=== PATIENT | female | born 1960 | race Caucasian/White ===

== ENCOUNTER → 2017-09-04 16:51 | Outpatient (CLI) | payer OTHER, SELFPAY ==
--- NOTE | 2017-09-04 | MM_ITS ---
MM Dig screening mamm BI w/CAD CAD Screening COMPARISON: Digital mammograms 05/20/2013 and 06/12/2016 INDICATION: There is a history of breast cancer in patient's mother diagnosed after menopause. TECHNIQUE: Standard CC and MLO images were obtained. R2 CAD reviewed. FINDINGS: The breasts are composed primarily of fat with scattered fibroglandular densities in the central portions bilaterally. There is a possible asymmetric density central portion of the right breast which may have been present previously but only seen on the cc view and it now appears somewhat more prominent. Recommend the patient return for ultrasound evaluation the right breast. There are additional stable densities in each breast. There are no suspicious microcalcifications. IMPRESSION: Upper fatty parenchyma with possible new or change in asymmetric density right breast and recommend follow-up ultrasound BI-RADS Category: 0 Need Additional Imaging Evaluation RECOMMENDED FOLLOW-UP: IMM - IMMEDIATE FOLLOW-UP RECOMMENDED (A letter has been sent to the patient regarding results of the study.)
== END ==
PROVIDERS: Family Provider Nurse Practitioner Family; PCP Nurse Practitioner Family; Visit Provider Nurse Practitioner Family
DX: Z12.31 Encounter for screening mammogram for malignant neoplasm of breast (principal)
CPT/HCPCS: 77067

== ENCOUNTER → 2017-09-11 14:30 | Outpatient (CLI) | payer OTHER, SELFPAY ==
--- NOTE | 2017-09-11 14:33 | US_ITS ---
US breast LT complete COMPARISON: Digital mammograms 09/04/2017 HISTORY: Possible change in asymmetric density right breast TECHNIQUE: Targeted ultrasound right breast FINDINGS: There is an oval hypoechoic lesion just behind the nipple measuring 1.3 x 1.5 x 0.6 cm. This has well-defined borders showing minimal acoustic enhancement. There is a second hypoechoic lesion at the 11:00 position mid breast measuring 1.5 x 1.1 x 0.6 cm and this shows slight acoustic enhancement as well. This lesion appears to correspond in size and location to the density seen on recent mammogram. There is a normal-appearing node in the axilla. IMPRESSION: Benign-appearing hypoechoic and likely cystic lesions with the larger of the 2 corresponding in size and location to the density on recent mammogram. The other cystic lesion appears to be just deep to the nipple where there are fibroglandular densities seen on the mammogram. No additional evaluation is indicated at this time
== END ==
PROVIDERS: Family Provider Nurse Practitioner Family; PCP Nurse Practitioner Family; Visit Provider Nurse Practitioner Family
DX: R92.8 Other abnormal and inconclusive findings on diagnostic imaging of breast (principal)
CPT/HCPCS: 76641

== ENCOUNTER → 2018-09-06 08:59 | Outpatient (CLI) | payer BC, SELFPAY ==
--- NOTE | 2018-09-06 09:12 | MM_ITS ---
MM Dig screening mamm BI w/CAD CAD Screening COMPARISON: Digital mammograms with CAD 06/12/2016 and 09/04/2017 INDICATION: Is a history of breast cancer patient's mother diagnosed after menopause. TECHNIQUE: Standard CC and MLO images were obtained. R2 CAD reviewed. FINDINGS: Scattered fibroglandular densities are seen in both breasts. The asymmetric density seen just deep to the nipple right breast which was evaluated with ultrasound and showed benign features. However there is suggestion of slight increase in size of this lesion since the previous exam and again I would recommend ultrasound and spot compression views in MLO and CC projection. There are stable benign-appearing densities near the axillary tail which breast likely a low-lying nodes. There is a stable benign-appearing nodular density outer quadrant right breast. There are no suspicious microcalcifications. IMPRESSION: Probable fatty parenchyma with possible slight interval change in the dominant asymmetric density right breast and suggest additional evaluation BI-RADS Category: 0 Need Additional Imaging Evaluation RECOMMENDED FOLLOW-UP: IMM - IMMEDIATE FOLLOW-UP RECOMMENDED (A letter has been sent to the patient regarding results of the study.)
--- NOTE | 2018-09-06 09:13 | CT_ITS ---
CT lung screening EXAM: CT LUNG LOW DOSE WO CONTRAST HISTORY: 40 pack-year smoking history, asymptomatic for lung cancer ITS.REASON: H/O NICOTINE DEPENDENCE ORDERING PHYSICIAN: Chio Hirsch PATIENT AGE: 58 years COMPARISON: 09/05/2011 TECHNIQUE: The exam was performed on a GE Light Speed [address] scanner using 2.90 mGy CTDI. A low dose helical CT CHEST was performed on a multi-detector scanner. All CT scans at the facility use one or more dose reduction, viz: automated exposure control, ma/kV adjustment per patient size (including targeted exams where dose is matched to indication, i.e. head), or iterative reconstruction technique. The LDCT was performed in a facility that meets the criteria for the screening program. Data regarding this exam was submitted to ACR which is an approved registry. The order for this exam indicates that it came as a result of a lung cancer screening counseling shard decision-making visit that included all the elements required of such a visit including smoking cessation. The radiologist interpreting this exam meets the CMS criteria for the LDCT lung cancer screening program. The exam is reported using the Lung-RADS classification scale and reported to the ACR registry. NOTE: This study was performed for the specific purposes of lung cancer screening and is not an alternative to diagnostic chest CT. RADIATION DOSE: CTDI vol(CT dose Index-volume) = 2.90mG DLP (Dose Length Product) = 106.81 mGcm FINDINGS: There is mild hyperinflation with attenuation of the peripheral pulmonary vessels consistent with COPD. There is a stable 6 x 3 mm nodule in the right upper lobe anteriorly. A stable subpleural noncalcified nodule is present in the left lower lobe laterally at 12 mm. There is scattered groundglass opacification in the left upper lobe with a more focal area of consolidation in the left upper lobe medially at 3.7 x 2 cm. Patchy densities present in the left upper lobe laterally and anteriorly as well as the right upper lobe medially. Scattered areas of pneumonitis are considered. There are atelectatic or fibrotic changes in the lung bases. There is mild thickening of the pericardium. IMPRESSION: 1. Lung RADS Category: 3, probably benign with patchy areas of groundglass density which may represent bilateral areas of pneumonitis. Recommend [address] follow-up without and with contrast to confirm resolution 2. Other findings: COPD, mild pericardial thickening RECOMMENDATIONS: [address] chest without and with contrast
== END ==
PROVIDERS: PCP Nurse Practitioner Family; Visit Provider Nurse Practitioner Family
DX: Z12.31 Encounter for screening mammogram for malignant neoplasm of breast (principal); Z12.2 Encounter for screening for malignant neoplasm of respiratory organs; Z87.891 Personal history of nicotine dependence
CPT/HCPCS: 77067

== ENCOUNTER → 2018-09-23 13:10 | Outpatient (CLI) | payer BC, SELFPAY ==
--- NOTE | 2018-09-23 13:13 | US_ITS ---
MM Dig mamm DX unilat RT CAD, US breast RT complete INDICATION: Follow-up abnormal mammogram ORDERING PHYSICIAN: Chio Hirsch PATIENT AGE: 58 years COMPARISON: 09/06/2018, 09/04/2017, 06/12/2016 TECHNIQUE: Spot compression views are performed of the right breast along with right breast ultrasound. FINDINGS: There is a 18 x 17 mm Lobular nodular density in the central aspect of the right breast slightly superior. The margins are somewhat indistinct along the superior aspect. There is an additional 8 mm nodule just lateral to the larger nodule. Right breast ultrasound: There is a 15 mm cyst at 6:00 possibly corresponding to the nodule of interest. There is an additional 9 mm cyst at 9:00. Small amount of present in the axilla. IMPRESSION: There is a 15 mm cyst in the 6:00 region of the right breast. The mammographic abnormality is more toward the central aspect of the right breast. Suggest ultrasound guided cyst aspiration with mammogram to follow to see if these nodules are one and the same. BI-RADS Category: 4 Suspicious Abnormality-Biopsy Considered RECOMMENDED FOLLOW-UP: BIO - BIOPSY RECOMMENDED (A letter has been sent to the patient regarding results of the study.)
== END ==
PROVIDERS: PCP Nurse Practitioner Family; Visit Provider Nurse Practitioner Family
DX: D48.61 Neoplasm of uncertain behavior of right breast (principal)
CPT/HCPCS: 76641; 77065

== ENCOUNTER → 2018-10-01 12:19 | Outpatient (CLI) | payer BC, SELFPAY ==
--- NOTE | 2018-10-01 12:28 | US_ITS ---
US FNA Breast MM Dig mamm DX unilat RT CAD, Ordering Physician: Madelyn Carr Patient Age: 58 years Female COMPARISON: ] Right mammogram 09/23/2018; bilateral mammogramMarch 2018 09/06/2018; & May 2016 Right breast ultrasound 09/23/2018 INDICATION: Intermediate density upper-outer quadrant right breast reflecting debris-filled cyst cyst versus solid nodule ULTRASOUND RIGHT BREAST the cyst in this identified on september 23, 2018 ultrasound right breast retroareolar region. On that axilla appears slightly larger today measuring nearly 1.5 the mr maximally x 0.7 cm. These initial images performed by dr. lopez and technologist mw were initially performed to confirm the density persist and to best identify route for access and biopsy. ULTRASOUND-GUIDED CYST ASPIRATION &/FNA RIGHT BREAST following sterile preparation and local skin anesthesia; aspiration needle was directed to this area. Under ultrasound guidance the needle tip was directed to the the hypoechoic area. This turned out to be a cyst. Fairly easily Encountered and fairly easily drained in its entirety with no appreciable residual on ultrasound. Patient tolerated procedure well DIAGNOSTIC RIGHT MAMMOGRAM -POST ASPIRATION CC and MLO view right breast show show that the mass seen here previously has diminished compatible with drain cyst. Only scant minimal residual density in this area, along with some minor post FNA procedure changes. ......... IMPRESSION............ 1. Initial images reveal slightly larger 1.5 CM X 0.7 cm hypoechoic area left breast behind the nipple at central breast. 2. Thereafter Successful needle aspiration of this hypoechoic area performed-confirming cyst. It was fully drain with this ultrasound guided needle aspiration.. 3. Subsequent right mammogram shows that the previous mass is is basically gone. ... PATHOLOGY REPORT:...... Negative for malignancy cells....... Numerous apocrine cells with rare ductal groups. Findings are compatible with fibrocystic change BI-RADS Category: 2 Benign Finding(s) RECOMMENDED FOLLOW-UP: 1YR - 1 YEAR FOLLOW-UP
== END ==
PROVIDERS: PCP Nurse Practitioner Family; Visit Provider Nurse Practitioner Family
DX: D48.61 Neoplasm of uncertain behavior of right breast (principal)
CPT/HCPCS: 10005; 76642; 77065

== ENCOUNTER 2019-03-09 12:00 | Outpatient (RCR) | payer BC, SELFPAY | END 2019-03-14 09:53 | disposition home or self-care (01) | LOC: PT.CARL 12:00 | PROVIDERS: PCP Nurse Practitioner Family; Visit Provider Orthopaedic Surgery | DX: Z96.652 Presence of left artificial knee joint (principal) | CPT/HCPCS: 97010; 97014; 97110; 97116; 97140; 97163; G0283 ==

== ENCOUNTER → 2019-09-01 11:58 | Outpatient (CLI) | payer BC, MEDICAID, SELFPAY ==
--- NOTE | 2019-09-01 12:03 | XR_ITS ---
PROCEDURE: XR CHEST 2V CLINICAL HISTORY: PRECORDIAL PAIN Chest pain COMPARISON: CXR CHEST(2 VIEWS-NOT PORTABLE) from 03/29/2014 CXR CHEST(2 VIEWS-NOT PORTABLE) from 07/03/2014 CXR CHEST(2 VIEWS-NOT PORTABLE) from 03/14/2015 FINDINGS: The cardiomediastinal silhouette and pulmonary vascularity are within normal limits. Vague increased density is present in the left lower lobe and to lesser degree in the right lower lobe. Upper lobes are clear. Degenerative change thoracic spine IMPRESSION: Increased markings in both lower lobes suspicious for bibasilar infiltrates. Dictated by: Eder Bradley MD 09/01/2019 15:32 Electronically signed by Eder Bradley MD in [place] 09/01/2019 15:32
== END ==
PROVIDERS: PCP Nurse Practitioner Family; Visit Provider Nurse Practitioner Family
DX: R07.2 Precordial pain (principal)
CPT/HCPCS: 71046

== ENCOUNTER → 2019-10-31 08:51 | Outpatient (CLI) | payer BC, MEDICAID, SELFPAY ==
--- NOTE | 2019-10-31 | CT_ITS ---
PROCEDURE: CT CHEST WO CON CLINICAL INDICATION: The shortness of air, COPD, abnormal pulmonary function test, tobacco use, smoker COMPARISON: LUNGSCREEN CT lung screening from 09/06/2018 TECHNIQUE: Axial images obtained with sagittal and coronal reformats. All CT scans at the facility use one or more dose reduction, viz: automated exposure control, ma/kV adjustment per patient size (including targeted exams where dose is matched to indication, i.e. head), or iterative reconstruction technique. FINDINGS: HEART AND MEDIASTINAL STRUCTURES: Coronary artery calcifications are present. No mediastinal or hilar mass. LUNGS AND PLEURAL SPACES: Findings of COPD. There are some paraseptal emphysematous changes. There are some patchy areas of ground-glass opacity in the right upper lobe, right middle lobe, and left upper lobe. A some of these have a different location compared to the previous exam. There is a stable 6 x 3 mm nodule in the right upper lobe. There is a stable 12 mm nodule in the left lower lobe in the subpleural region. No new nodules are evident. No effusions. BONY STRUCTURES: Degenerative changes thoracic spine UPPER ABDOMEN: Prior cholecystectomy ADDITIONAL FINDINGS: Scattered small axillary lymph nodes are present IMPRESSION: COPD with paraseptal emphysema. There are patchy bilateral areas of ground-glass attenuation which have slightly changed compared to the previous study. Some of the previous areas of ground-glass attenuation have improved while there are new areas also noted. This is nonspecific and could be seen with viral pneumonia/ COVID 19, atypical pneumonia, or cryptogenic organizing pneumonia. Stable right upper and left lower lobe nodules Dictated by: Eder Bradley MD 11/02/2019 12:17 Electronically signed by Eder Bradley MD in [place] 11/02/2019 12:17
--- NOTE | 2019-10-31 | MM_ITS ---
PROCEDURE: MM DIG SCREENING MAMM BI W/CAD Digital Breast Tomosynthesis Included CLINICAL INDICATION: There is a history of breast cancer in the patient's mother diagnosed after menopause. COMPARISON: [facility] MM Dig screening mamm BI w/CAD from 09/06/2018 DXRT MM Dig mamm DX unilat RT CAD from 09/23/2018 DXRT MM Dig mamm DX unilat RT CAD from 10/01/2018 TECHNIQUE: Standard CC and MLO images and 3D Tomosynthesis was obtained. R2 CAD reviewed. FINDINGS: Scattered fibroglandular densities are seen throughout both breasts. There is a stable benign-appearing nodular density upper-outer quadrant right breast which appears typical of an intramammary node. There is a similar oval nodular density near the axillary tail which is stable likely a low-lying node. There is no suspicious lesion and no suspicious microcalcifications. IMPRESSION: Fibrofatty parenchyma with no suspicious lesions seen BI-RAD Category: 2 Benign Finding(s) FOLLOW-UP: 1YR 1 Year Follow-up (A letter has been sent to the patient regarding results of the study.) Dictated by: Dr. Torrey Jordan MD 11/01/2019 14:[address] Torrey Jordan MD in [place] 11/01/2019 14:40
== END ==
PROVIDERS: PCP Nurse Practitioner Family; Visit Provider Nurse Practitioner Family
DX: Z12.31 Encounter for screening mammogram for malignant neoplasm of breast (principal); R94.2 Abnormal results of pulmonary function studies
CPT/HCPCS: 71250; 77063; 77067

== ENCOUNTER 2020-08-21 11:19 | Emergency (ER) | payer BC, MEDICARE, MEDICAID, SELFPAY ==
--- NOTE | 2020-08-21 11:56 | XR_ITS ---
PROCEDURE: XR WRIST LT MIN 3V CLINICAL INDICATION: fall Pain COMPARISON: No exams were available for comparison FINDINGS: No fracture or dislocation. No lytic or blastic change. There is normal mineralization. The joint spaces are well-preserved. No significant degenerative/arthritic changes. No erosive changes evident. Other findings:None. IMPRESSION: No acute findings. Dictated by: Eder Bradley MD 08/21/2020 13:42 Eder Bradley MD in [place] 08/21/2020 13:42
--- NOTE | 2020-08-21 11:56 | XR_ITS ---
PROCEDURE: XR HAND LT MIN 3V CLINICAL INDICATION: fall Pain COMPARISON: No exams were available for comparison FINDINGS: No fracture or dislocation. No lytic or blastic change. There is normal mineralization. There are mild osteoarthritic changes at the DIP joints of the 2nd through 5th fingers and at the interphalangeal joint of the thumb Other findings:None. IMPRESSION: No acute findings. Dictated by: Eder Bradley MD 08/21/2020 13:43 Eder Bradley MD in [place] 08/21/2020 13:43
[2020-08-21 11:57] VITALS: BP 170/70; PULSE 114; RESP 16; TEMP 36.6; O2SAT 96; BMI 41.5
--- NOTE | 2020-08-21 12:10 | HMH.EDUTC ---
[facility] [place] [facility] [place] Clinical Impression: Hand contusion Qualifiers: Encounter type: initial encounter Laterality: left Qualified Code(s): S60.222A - Contusion of left hand, initial encounter Wrist sprain Qualifiers: Encounter type: initial encounter Laterality: left Qualified Code(s): S63.502A - Unspecified sprain of left wrist, initial encounter Disposition: Home, Self-Care Condition on Discharge: Good Instructions: How To Perform RICE (Rest, Ice, Compress, Elevate) Additional Instructions: *RICE, Rest the extremity, Ice 15-20 minutes 3-4 times daily, Compress- wear the tam wrap as discussed as much as possible to help reduce swelling and pain, Elevate the extremity when at rest *Tam wrap/velcro wrist splint is for support and help control swelling, use it except in the shower. Be sure that is not to tight but not to loose either *Elevate when resting *Ibuprofen 600-800mg every 6-8 hours as needed for pain an inflammation. If need something more can take Tylenol in between doses of Ibuprofen to help Immediately follow up with your family doctor for new or worsening of symptoms, or no noticeable improvement over the next 3-5 days You may call back to the [facility] tomorrow for the official Radiology reading of your xray and further instructions Follow up with Family Doctor if no improvement for referral to Orthopedics if needed Return if needed Referrals: Chio Hirsch [Primary Care Provider] - As needed Forms: Work/School Release Time of Disposition: 12:46 Medical Decision Making - Sukhdev Inquiry Pt receiving controlled substance: No Sukhdev was queried for this patient: No Vital Signs: 08/21/20 11:57 Temperature 97.8 F Temperature Source Tympanic Pulse Rate [Right] 114 H Respiratory Rate 16 Blood Pressure [Right Arm] 170/70 H Blood Pressure Mean [Right Arm] 103 Blood Pressure Source [Right Arm] Automatic Cuff Blood Pressure Position [Right Arm] Sitting 02 Sat by Pulse Oximetry 96 Oxygen Delivery Method Room Air Orders (Tests/Meds): ORDERS Category Date Time Status XR hand LT min 3V Stat Exams 08/21/20 11:56 Taken XR wrist LT min 3V Stat Exams 08/21/20 11:56 Taken - Radiology Data #1 Image(s): Hand Image Reviewed: Yes I reviewed the patient's radiology image Preliminary Findings: No Fracture Seen #2 Image(s): Wrist Image Reviewed: Yes I reviewed the patient's radiology image Preliminary Findings: No Fracture Seen [facility] [place] [facility] [place] HPI - General Stated complaint: [id number] left hand injury, home fall Time Seen by Provider: 08/21/20 12:10 Mode of Arrival: Ambulatory Source of Information: Patient Limitations: No Limitations Description of Symptoms (Recalled from Triage Doc. by RN): pt fell thursday and is having L hand and wrist pain. HEENT Symptoms (Recalled from RN notes): No Resp Symptoms (Recalled from RN notes): No Skin Symptoms (Recalled from RN notes): No MS Symptoms (Recalled from RN notes): Yes (L HAND & WRIST PAIN) Functional Status (Recalled from RN notes): na - History of Present Illness Provider Complaint: Patient states that she slipped on Thursday and fell and hurt her left hand and wrist State that ever since she has been having pain in her left knuckle area that shoots pain down to her wrist at times when she moves it Denies any other injuries - Related Data Home Medications Medication Instructions Recorded Confirmed Atorvastatin Calcium [Lipitor 40mg 40 mg PO DAILY 03/21/18 03/21/18 Tab] Fluoxetine HCl 40 mg PO DAILY 03/21/18 03/21/18 Levothyroxine Sodium 175 mcg PO DAILY 03/21/18 03/21/18 [Levothyroxine 175mcg (0.175mg) Tab] lisinopriL [Lisinopril 40mg Tablet] 40 mg PO DAILY 03/21/18 03/21/18 Allergies Allergy/AdvReac Type Severity Reaction Status Date / Time Sulfa (Sulfonamide Allergy Severe HIVES/AIRWA Verified 08/21/20 12:01 Antibiotics) Y - Worker's Comp Is this a Worker's Comp case?: No [facility] History - Hepatitis A Screen Drug use
[2020-08-21 12:47] VITALS: BP 169/72; PULSE 112; RESP 16; TEMP 36.6
== END 2020-08-21 12:52 | disposition home or self-care (01) ==
PROVIDERS: Emergency Provider Nurse Practitioner; PCP Nurse Practitioner Family
DX: S60.222A Contusion of left hand, initial encounter (principal); S63.502A Unspecified sprain of left wrist, initial encounter; W01.0XXA Fall on same level from slipping, tripping and stumbling without subsequent striking against object, initial encounter; Y92.019 Unspecified place in single-family (private) house as the place of occurrence of the external cause; F17.210 Nicotine dependence, cigarettes, uncomplicated; Z88.2 Allergy status to sulfonamides
CPT/HCPCS: 29125; 73110; 73130; 99202; G0463

== ENCOUNTER 2020-10-05 12:40 | Outpatient (CLI) | payer MEDICARE, BC, SELFPAY ==
[2020-10-05] VITALS (10 sets, daily range): BP systolic 120–156; BP diastolic 56–78; PULSE 88–97; RESP 18; TEMP 36.4–36.9; O2SAT 92–93; BMI 40.9
[2020-10-05 13:19] LABS: Basophils # 0.1 K/mm3 (0-0.2); Basophils % 0.7 % (0.1-2.0); Eosinophils % 0.4 % (0.1-12.0); Hematocrit 39.5 % (37.0-47.0); Hemoglobin 12.3 g/dL (12.2-16.2); Lymphocytes # 1.4 K/mm3 (0.7-4.5); Lymphocytes % 17.9 % (10-50); Mean Corpuscular HGB Conc 31.2 g/dL (31.8-35.4); Mean Corpuscular Hemoglobin 27.4 pg (27.0-31.2); Mean Corpuscular Volume 87.7 fl (81-99); Mean Platelet Volume 7.7 fl (7.4-10.4); Monocytes # 0.6 K/mm3 (0.1-1.0); Monocytes % 8.3 % (1.7-9.3); Neutrophils # 5.5 K/mm3 (1.8-7.8); Neutrophils % 72.7 % (37.0-80.0); Platelet Count 234 K/mm3 (142-424); Red Blood Count 4.51 M/mm3 (4.20-5.40); White Blood Count 7.6 K/mm3 (4.8-10.8)
[2020-10-05 13:23] LABS: Chloride 99 mmol/L (98-107); Potassium 3.6 mmoL/L (3.5-5.1); Sodium 133 mmol/L (136-145)
[2020-10-05 13:25] LABS: Blood Urea Nitrogen 11 mg/dl (7-17); Creatinine Clearance Estimated 103 mL/min (50-200); Estimated Glomerular Filt Rate 56 ml/min (>60); GFR (African American) 68 ML/MIN (>60)
[2020-10-05 13:26] LABS: Alanine Aminotransferase 16 U/L (12-78); Albumin/Globulin Ratio 1.1 (1.1-1.8); Alkaline Phosphatase 84 U/L (38-126); Anion Gap 11.6 mEq/L (5-15); Aspartate Amino Transferase 27 U/L (14-36); Bilirubin,Total 0.5 mg/dl (0.2-1.3); Calcium 8.5 mg/dl (8.4-10.2); Carbon Dioxide 26 mmol/L (22.0-30.0); Globulin 3.8 g/dL (1.3-3.2); Glucose 111 mg/dl (74-100); Total Protein,Serum 7.8 g/dl (6.3-8.2)
--- NOTE | 2020-10-05 14:00 | PC.NURSE ---
1399-september, cashier parking lot spoke with [facility] about scheduling pt for bam infusion; wants to give pt bam infusion today; pt will receive bam infusion while getting her fluids. september here to explain the process of giving the drug.
--- NOTE | 2020-10-05 14:15 | PC.NURSE ---
1415-spoke with yadira from [facility] that [facility] wants to d/c mick ma.
--- NOTE | 2020-10-05 15:55 | XR_ITS ---
PROCEDURE: XR CHEST PORTABLE CLINICAL HISTORY: covid positive COMPARISON: CR CXR CHEST(2 VIEWS-NOT PORTABLE) from 07/03/2014 CR CXR CHEST(2 VIEWS-NOT PORTABLE) from 03/14/2015 CR XR CHEST 2V from 09/01/[address] CHEST WO CON from 10/31/2019 FINDINGS: The cardiomediastinal silhouette and pulmonary vascularity are within normal limits. Patchy infiltrate is present in the right midlung and right lower lung zone. The left lung is clear. No acute bony abnormalities. IMPRESSION: Pneumonia in the right mid and lower lung zone Dictated by: Eder Bradley MD 10/05/2020 17:38 Eder Bradley MD in [place] 10/05/2020 17:38
--- NOTE | 2020-10-05 15:55 | PC.NURSE ---
1558-spoke with yadira at [facility] about changing xray order to chest 2 view portable; per [facility] ok to proceed
== END 2020-10-05 16:10 | disposition home or self-care (01) ==
LOC: INF 12:43
PROVIDERS: PCP Nurse Practitioner Family; Visit Provider Nurse Practitioner Family
DX: U07.1 COVID-19 (principal); K52.9 Noninfective gastroenteritis and colitis, unspecified; E86.0 Dehydration; J45.901 Unspecified asthma with (acute) exacerbation
CPT/HCPCS: 71045; 80053; 85025; 96360; 96361; 96367; 96375; J2405

== ENCOUNTER → 2020-11-06 10:51 | Outpatient (CLI) | payer BC, MEDICARE, SELFPAY ==
--- NOTE | 2020-11-06 10:57 | MM_ITS ---
PROCEDURE: MM DIG SCREENING MAMM BI W/CAD Digital Breast Tomosynthesis Included CLINICAL INDICATION: SCREENING COMPARISON: MG MM DIG SCREENING MAMM BI W/CAD from 10/31/2019 TECHNIQUE: Standard CC and MLO images and 3D Tomosynthesis was obtained. R2 CAD reviewed. FINDINGS: The breasts are composed of scattered fibroglandular tissue.. No dominant mass lesions, suspicious calcifications or architectural distortion. Multiple bilateral nodules are again noted, demonstrate no significant interval change compared to prior study. Some of these nodules demonstrate central lucency, suggestive of intramammary lymph nodes. IMPRESSION: No suspicious findings. BI-RAD Category: 2 Benign Finding(s) FOLLOW-UP: 1YR 1 Year Follow-up (A letter has been sent to the patient regarding results of the study.) Dictated by: Lovely Zaragoza 11/07/2020 09:30 Lovely Zaragoza in [place] 11/07/2020 09:30
== END ==
PROVIDERS: PCP Nurse Practitioner Family; Visit Provider Nurse Practitioner Family
DX: Z12.31 Encounter for screening mammogram for malignant neoplasm of breast (principal)
CPT/HCPCS: 77063; 77067

== ENCOUNTER 2020-12-24 08:51 | Day surgery (SDC) | payer MEDICARE, OTHER, SELFPAY ==
[2020-12-19 10:56] VITALS: BMI 40.4
[2020-12-24 09:17] VITALS: BP 119/66; PULSE 104; RESP 18; TEMP 36.3; O2SAT 94
[2020-12-24 09:24] LABS: POC Glucose,Bedside 111 (70-110)
[2020-12-24 09:52] VITALS: O2SAT 95
--- NOTE | 2020-12-24 10:24 | HMH.PROC ---
[facility] Procedure Note Procedure Note:: Colonoscopy Procedure Report: Colonoscopy with cold snare polypectomy Endoscopist: Avel Villa II, MD Referring physician: LAURYN Reich Date of Procedure: December 24, 2020 Equipment: Olympus 190 variable stiffness pediatric colonoscope Sedation: MAC sedation Indication: Mrs. Workman is a 60-year-old female who is here for diagnostic colonoscopy secondary to a positive Cologuard test. She did have a colonoscopy 10 years ago that was reportedly normal. She reports no abdominal pain, weight loss, change in her bowel habits or rectal bleeding. She reports no family history of colon cancer. Procedure: Prior to the procedure, a history and physical exam was performed, and patient's medications and allergies were reviewed. The risks, benefits and alternatives of the sedation and procedure were discussed with the patient. All questions were answered and informed consent was obtained. The patient was brought to the procedure room. Patient identification and proposed procedure were verified by the physician and the nurse. The patient was placed in a left lateral decubitus position and the scope was passed under direct vision. Throughout the procedure, the patient's blood pressure, pulse, and oxygen saturations were monitored continuously. The colonoscopy was accomplished without difficulty. The patient tolerated the procedure well. Findings: On digital rectal examination there was normal rectal tone. There were no external hemorrhoids. The colonoscope was introduced through the anal canal to the rectum and advanced to the cecum. The ileocecal valve and appendiceal orifice were identified. The scope was advanced a short distance into the ileum which appeared grossly normal. The scope was then withdrawn into the colon. There were 6 colon polyps (ascending x2 (5 and 8 mm), descending x1 (7 mm) and sigmoid/rectum x3 (4, 4 and 6 mm)) which were all removed via cold snare polypectomy. There were scattered diverticuli throughout the descending and sigmoid colon (LEFT colon). The rectum itself was normal. Upon retroflexion within the rectum there were grade 1-2 internal hemorrhoids. The preparation was excellent throughout with [place] Preparation Score of 9. The cecal time was 12 minutes. Impression: 1. Colonic polyps x6 2. Left-sided diverticulosis 3. Grade 1-2 internal hemorrhoids Plan: I will follow up the polyp pathology and recommend repeat colonoscopy again in 3 years based upon the polyp histology. I would encourage bulking fiber supplementation on a long-term daily maintenance basis.
[2020-12-24 10:25] VITALS: BP 116/93; PULSE 98; RESP 20; TEMP 36.3; O2SAT 87
[2020-12-24 10:35] VITALS: BP 108/61; PULSE 93; RESP 20; O2SAT 95
[2020-12-24 10:45] VITALS: BP 101/58; PULSE 84; RESP 20; O2SAT 99
[2020-12-24 11:00] VITALS: BP 133/62; PULSE 89; RESP 20; O2SAT 95
--- NOTE | 2020-12-24 11:12 | HMH.ANESCL ---
[facility] Anesthesia Checklist - Structural Data Admitted From: Home Planned Operative Procedure/s: colonoscopy Consent for Planned Operative Procedure(s) Verified: Yes - Airway Assessment C-Spine Mobility Assessed: Yes TMJ Mobility Assessed: Yes Dentition: Good Dentition - Neurological Assessment Level of Consciousness: Awake, Alert, Appropriate - Anesthesia Plan Anesthesia Risk discussed: Yes Anesthesia Plan: Verified ASA Class: III Anesthesia Type: MAC [facility] History I have reviewed the patient's past medical history: Yes Medical History: Reports:: Diabetes Mellitus Type 2, Heart Murmur, Hyperlipidemia, Hypertension Denies:: Cancer, Diabetes Mellitus Type 1, Internal Pacemaker, MRSA, Seizures *Have you ever received a pneumonia vaccine?: Yes *Have you received a flu vaccine this season?: Yes Other Medical History: Reports: Arthritis, Hypothyroidism, Thyroid Disease Anesthesia experience/problems:: none Laterality Cases: Bilateral: Carpal Tunnel Release Other Surgeries: Yes: Cholecystectomy, Tubal Ligation. No: Pacemaker Amputation: No Fractures: No - *Social History Last grade of school completed: High school graduate Smoking Status: Current every day smoker Tobacco Type: cigarettes # Packs/Day (cigarettes): 1 Alcohol Intake: never Substance Use Type: denies use *Occupational Status:: retired Housing: house Household Members: spouse *Travel in the last 8 weeks: None Family Hx:: Cancer, Thyroid Disorder
== END 2020-12-24 11:00 | disposition home or self-care (01) ==
LOC: OUTP 08:59
PROVIDERS: PCP Nurse Practitioner Family; Visit Provider Internal Medicine Gastroenterology
PROC: 0DJD8ZZ Inspection of Lower Intestinal Tract, Via Natural or Artificial Opening Endoscopic (ICD-10-PCS; CPT 45378; principal; 2020-12-24 10:00)
DX: K63.5 Polyp of colon (principal); K57.30 Diverticulosis of large intestine without perforation or abscess without bleeding; K64.0 First degree hemorrhoids; E11.9 Type 2 diabetes mellitus without complications; E78.5 Hyperlipidemia, unspecified; I10 Essential (primary) hypertension; R01.1 Cardiac murmur, unspecified; Z72.0 Tobacco use; Z80.9 Family history of malignant neoplasm, unspecified; Z83.49 Family history of other endocrine, nutritional and metabolic diseases
CPT/HCPCS: 45385; 82962; 88305

== ENCOUNTER → 2021-05-14 14:34 | Outpatient (CLI) | payer MEDICARE, MEDICAID, SELFPAY ==
--- NOTE | 2021-05-14 14:39 | CT_ITS ---
PROCEDURE: CT LUNG SCREENING CLINICAL INDICATION: H/O NICOTINE DEPENDENCE COMPARISON: CT CT CHEST WO CON from 10/31/2019 TECHNIQUE: The exam was performed on a GE Light Speed [address] scanner using 2.90 mGy CTDI. A low dose helical CT CHEST was performed on a multi-detector scanner. All CT scans at the facility use one or more dose reduction, viz: automated exposure control, ma/kV adjustment per patient size (including targeted exams where dose is matched to indication, i.e. head), or iterative reconstruction technique. The LDCT was performed in a facility that meets the criteria for the screening program. Data regarding this exam was submitted to ACR which is an approved registry. The order for this exam indicates that it came as a result of a lung cancer screening counseling shard decision-making visit that included all the elements required of such a visit including smoking cessation. The radiologist interpreting this exam meets the [facility] criteria for the LDCT lung cancer screening program. The exam is reported using the Lung-RADS classification scale and reported to the ACR registry. NOTE: This study was performed for the specific purposes of lung cancer screening and is not an alternative to diagnostic chest CT. RADIATION DOSE: CTDI vol(CT dose Index-volume) = 2.90mG DLP (Dose Length Product) = 101.34 mGcm FINDINGS: COPD changes with scattered areas of scarring. Stable 7 mm nodule right. Old granulomatous disease. Stable 10 mm subpleural nodule left lower lobe laterally. No new suspicious nodules evident. OTHER FINDINGS: Minor coronary artery calcifications IMPRESSION: Lung-RADS Category 2 Benign Appearance or Behavior Follow-up: Continue annual screening with LDCT in 12 months Dictated by: Eder Bradley MD 05/18/2021 09:27 Eder Bradley MD in [place] 05/18/2021 09:27
== END ==
PROVIDERS: PCP Nurse Practitioner Family; Visit Provider Nurse Practitioner Family
DX: Z87.891 Personal history of nicotine dependence (principal); Z12.2 Encounter for screening for malignant neoplasm of respiratory organs
CPT/HCPCS: 71271

== ENCOUNTER 2021-10-03 21:41 | Observation (INO) | payer MEDICARE, MEDICAID, SELFPAY ==
[2021-10-03] VITALS (7 sets, daily range): BP systolic 119–193; BP diastolic 63–78; PULSE 112–125; RESP 19–26; TEMP 36.9; O2SAT 92–99; BMI 41.8
--- NOTE | 2021-10-03 21:46 | ECG_ITS ---
APPROVED REPORT Exam: Resting ECG HR:121 bpm ECG Measurements Heart Rate 121 AXES WV 132 P 77 QRSd 86 QRS 56 QT 422 T 78 QTc 494 Conclusion SINUS TACHYCARDIA LOW QRS VOLTAGE IN PRECORDIAL LEADS [QRS DEFLECTION < 1.0 mV IN CHEST LEADS] NONSPECIFIC T-WAVE ABNORMALITY ABNORMAL RHYTHM ECG UNCONFIRMED REPORT Electronically signed by : Santosh Silva MD 10/04/2021 14:51:04
--- NOTE | 2021-10-03 21:48 | PC.NURSE ---
Notified respiratory of need for a VBG and Duoneb breathing treatment
--- NOTE | 2021-10-03 21:49 | XR_ITS ---
PROCEDURE INFORMATION: Exam: XR Chest Exam date and time: 10/03/2021 9:53 PM Age: 61 years old Clinical indication: Shortness of breath; Additional info: SOA TECHNIQUE: Imaging protocol: XR of the chest. Views: 1 view. Total images: 1 COMPARISON: CR XR CHEST PORTABLE 10/05/2020 4:06 PM FINDINGS: Lungs: Pulmonary vasculature grossly normal. Mild bilateral perihilar and basilar interstitial and alveolar opacities suggesting pulmonary edema or pneumonia. Pleural spaces: No pleural effusion. No pneumothorax. Heart/Mediastinum: Heart size normal. No tracheal/mediastinal shift. Bones/joints: No acute osseous abnormalities are identified. IMPRESSION: Mild bilateral perihilar and basilar interstitial and alveolar opacities suggesting pulmonary edema or pneumonia.
--- NOTE | 2021-10-03 21:54 | HMH.EDGENADL ---
ED Disposition Clinical Impression: Acute exacerbation of chronic obstructive airways disease Community acquired pneumonia Qualifiers: Laterality: unspecified laterality Qualified Code(s): J18.9 - Pneumonia, unspecified organism Disposition: Admitted As Inpatient Condition on Discharge: Good - Critical Care Critical Care Time: No Attestation: On 10/03/21, the high probability of a clinically significant, sudden or life threatening deterioration of the following system(s) required my full and direct attention, intervention and personal management. The time I documented below is in addition to time spent performing reported procedures but includes the following listed in this critical care notation. Medical Decision Making - Medical Records Medical records reviewed: Yes: I reviewed the patient's medical records. - Sukhdev Inquiry Pt receiving controlled substance: No Vital Signs: 10/03/21 21:33 10/03/21 21:55 10/03/21 22:25 Temperature 98.4 F Temperature Source Oral Pulse Rate 119 H 119 H Pulse Rate [Left] 125 H Respiratory Rate 19 Blood Pressure [Right Arm] 193/78 H Blood Pressure Mean [Right Arm] 116 02 Sat by Pulse Oximetry 95 96 95 Oxygen Delivery Method Room Air Room Air Room Air - Lab Data Lab Results 10/03/21 21:49: VBG pH 7.34, VBG pCO2 40.5, VBG pO2 71.6 H, VBG HCO3 21.5 L, VBG Total CO2 22.8 L, VBG O2 Saturation 94.2 H, VBG Base Excess -4.2 L 10/03/21 21:52: WBC 12.3 H, RBC 4.22, Hgb 12.7, Hct 40.0, MCV 94.7, MCH 30.2, MCHC 31.9, RDW 14.3, Plt Count 410, MPV 7.8, Neut % (Auto) 87.6 H, Lymph % (Auto) 6.4 L, [place] % (Auto) 4.5, Eos % (Auto) 0.8, Baso % (Auto) 0.8, Neut # (Auto) 10.7 H, Lymph # (Auto) 0.8, [place] # (Auto) 0.6, Eos # (Auto) 0.1, Baso # (Auto) 0.1, Total Counted 100, Neutrophils % (Manual) 79 H, Band Neutrophils % 1.0, Lymphocytes % (Manual) 10, Monocytes % (Manual) 10 H, Platelet Estimate Normal 04/07/22 21:52: Sodium 132 L, Potassium 4.3, Chloride 99, Carbon Dioxide 24, Anion Gap 13.3, BUN 19 H, Creatinine 1.20 H, Estimated Creat Clear 43, Estimated GFR 45 L, Est GFR ( Amer) 55 L, Glucose 297 H, Calcium 8.4, Troponin I < 0.01, NT-Pro-B Natriuret Pep 128 H 10/04/21 00:02: SARS-CoV-2 (PCR) Not detected, Influenza A Untype (PCR) Not detected, Influenza Type B (PCR) Not detected Result diagrams: 10/03/21 21:52 10/03/21 21:52 Orders (Tests/Meds): ED MEDICATIONS Generic Name Dose Route Start Last Admin Trade Name Freq PRN Reason Stop Dose Admin Albuterol/Ipratropium 6 ml 10/04/21 00:15 Ipratropium/Albuterol 3 Ml Neb IH 11/03/21 00:14 Q6H KENDAL Atorvastatin Calcium 40 mg 10/04/21 09:00 Atorvastatin 40mg Tablet PO 11/03/21 08:59 DAILY KENDAL Doxycycline Hyclate 100 mg 10/04/21 00:00 10/04/21 00:26 Doxycycline Hycl 100 Mg Tablet PO 10/18/21 00:00 100 mg Q12H KENDAL Administration Ceftriaxone Sodium 2 gm/ 50 mls @ 100 mls/hr 10/03/21 23:45 10/04/21 00:23 Sodium Chloride IV 10/17/21 23:44 100 mls/hr Q24H KENDAL Administration Levothyroxine Sodium 175 mcg 10/04/21 09:00 Levothyroxine 175mcg (0.175mg) Tab PO 11/03/21 08:59 DAILY KENDAL Metformin HCl 500 mg 10/04/21 09:00 Metformin 500mg Tablet PO 11/03/21 08:59 DAILY KENDAL Non-Formulary Medication 40 mg 10/04/21 09:00 Lisinopril [Lisinopril 40mg Tablet] PO 11/03/21 08:59 DAILY KENDAL Non-Formulary Medication 10 mg 10/04/21 09:00 Loratadine [Claritin] PO 11/03/21 08:59 DAILY KENDAL Non-Formulary Medication 30 mg 10/04/21 09:00 Ubidecarenone [Coq-10] PO 11/03/21 08:59 DAILY KENDAL Fluticasone/Salmeterol puffs 10/04/21 09:00 Fluticasone/Salmeterol 250/50mcg Diskus IH 11/03/21 08:59 BID KENDAL Tiotropium Shellman cap 10/04/21 09:00 Tiotropium 18mcg/Puff Inhaler IH 11/03/21 08:59 DAILY KENDAL Discontinued Medications Generic Name Dose Route Start Last Admin Trade Name Freq PRN Reason Stop Dose Admin Albuterol Sul
[2021-10-03 22:00] LABS: Basophils # 0.1 K/mm3 (0-0.2); Basophils % 0.8 % (0.1-2.0); Eosinophils # 0.1 K/mm3 (0.0-0.4); Eosinophils % 0.8 % (0.1-12.0); Hemoglobin 12.7 g/dL (12.2-16.2); Lymphocytes # 0.8 K/mm3 (0.7-4.5); Lymphocytes % 6.4 % (10-50); Mean Corpuscular HGB Conc 31.9 g/dL (31.8-35.4); Mean Corpuscular Hemoglobin 30.2 pg (27.0-31.2); Mean Corpuscular Volume 94.7 fl (81-99); Mean Platelet Volume 7.8 fl (7.4-10.4); Monocytes # 0.6 K/mm3 (0.1-1.0); Monocytes % 4.5 % (1.7-9.3); Neutrophils # 10.7 K/mm3 (1.8-7.8); Neutrophils % 87.6 % (37.0-80.0); Platelet Count 410 K/mm3 (142-424); Red Blood Count 4.22 M/mm3 (4.20-5.40); Red Cell Distribution Width 14.3 % (11.5-17.5); White Blood Count 12.3 K/mm3 (4.8-10.8)
[2021-10-03 22:01] LABS: VBG Base Excess -4.2 mmol/L (-2.4-2.3); VBG HCO3 21.5 mmol/L (23-30); VBG Oxygen Saturation 94.2 % (50-70); VBG PCO2 40.5 mmol/L (35-51); VBG PH 7.34 mmol/L (7.31-7.41); VBG PO2 71.6 mmol/L (28-40); VBG Total CO2 22.8 mmol/L (23-27)
[2021-10-03 22:05] LABS: MANUAL DIFFERENTIAL MANUAL DIFFERENTIAL (MANUAL DIFF)
[2021-10-03 22:07] LABS: Chloride 99 mmol/L (98-107); Sodium 132 mmol/L (136-145)
[2021-10-03 22:08] LABS: Potassium 4.3 mmoL/L (3.5-5.1)
[2021-10-03 22:10] LABS: Blood Urea Nitrogen 19 mg/dl (7-17); Creatinine Clearance Estimated 43 mL/min (50-200); Estimated Glomerular Filt Rate 45 ml/min (>60); GFR (African American) 55 ML/MIN (>60)
[2021-10-03 22:11] LABS: Anion Gap 13.3 mEq/L (5-15); Calcium 8.4 mg/dl (8.4-10.2); Carbon Dioxide 24 mmol/L (22.0-30.0); Glucose 297 mg/dl (74-100)
[2021-10-03 22:21] LABS: NT Pro Brain Natriuretic Pep. 128 pg/mL (0-125)
[2021-10-03 22:29] LABS: Troponin I < 0.01 ng/ml (0.00-0.034)
[2021-10-03 23:03] LABS: Lymphocytes % 10 % (10-50); Monocytes % 10 % (2-9); Neutrophils % 79 % (42-76); Platelet Estimate Normal; Total Cells Counted 100
[2021-10-04] VITALS (11 sets, daily range): BP systolic 118–175; BP diastolic 59–99; PULSE 80–112; RESP 18–20; TEMP 36.1–36.8; O2SAT 89–96; BMI 41.8
--- NOTE | 2021-10-04 00:03 | PC.NURSE ---
SHAYY SMITH speaking to Dr. Jose
--- NOTE | 2021-10-04 00:10 | PC.NURSE ---
Notified cook house supervisor of pt admission and need for bed assignment
[2021-10-04 00:19] LABS: Coronavirus 19, PCR Not Detected (NotDetected); Influenza A, PCR Not Detected (NotDetected); Influenza B, PCR Not Detected (NotDetected)
--- NOTE | 2021-10-04 01:55 | PC.NURSE ---
patient up to floor via wheelchair @ 01:24.
--- NOTE | 2021-10-04 07:18 | P.CONPHA_ITS ---
[facility] Pharmacy VTE Monitoring - Patient Demographics Admission date: 10/03/21 Report Date: 10/04/21 Time: 07:18 Allergies/Adverse Reactions: Patient Allergies Sulfa (Sulfonamide Antibiotics) Allergy (Severe, Verified 08/21/20 12:01) HIVES/AIRWAY Height: 1.65 m Weight: 114.022 kg Patient Problems: Current Active Problems Community acquired pneumonia (Acute) Acute exacerbation of chronic obstructive airways disease (Acute) - VTE Risk Labs: VTE Related Lab Results Hgb 12.7 g/dL (12.2-16.2) 10/03/21 21:52 Hct 40.0 % (37.0-47.0) 10/03/21 21:52 Plt Count 410 K/mm3 (142-424) 10/03/21 21:52 BUN 19 mg/dl (7-17) H 10/03/21 21:52 Creatinine 1.20 mg/dl (0.52-1.04) H 10/03/21 21:52 Estimated Creat Clear 43 mL/min (50-200) 10/03/21 21:52 VTE Score: 6 VTE Risk Level: Moderate Risk - Prophylaxis VTE Prophylaxis Ordered?: Yes Types of VTE Prophylaxis: TEDS Knee High Location of Applied Device: Bilateral Lower Extremeties
[2021-10-04 07:22] LABS: Basophils # 0.1 K/mm3 (0-0.2); Basophils % 0.5 % (0.1-2.0); Chloride 102 mmol/L (98-107); Eosinophils % 0.3 % (0.1-12.0); Hematocrit 40.4 % (37.0-47.0); Hemoglobin 12.7 g/dL (12.2-16.2); Lymphocytes # 0.4 K/mm3 (0.7-4.5); Lymphocytes % 3.5 % (10-50); Mean Corpuscular HGB Conc 31.5 g/dL (31.8-35.4); Mean Corpuscular Hemoglobin 29.6 pg (27.0-31.2); Mean Corpuscular Volume 94.1 fl (81-99); Mean Platelet Volume 7.6 fl (7.4-10.4); Monocytes # 0.2 K/mm3 (0.1-1.0); Monocytes % 1.6 % (1.7-9.3); Neutrophils # 11.6 K/mm3 (1.8-7.8); Neutrophils % 94.1 % (37.0-80.0); Platelet Count 409 K/mm3 (142-424); Red Blood Count 4.29 M/mm3 (4.20-5.40); Red Cell Distribution Width 14.2 % (11.5-17.5); Sodium 135 mmol/L (136-145); White Blood Count 12.3 K/mm3 (4.8-10.8)
[2021-10-04 07:23] LABS: Potassium 4.7 mmoL/L (3.5-5.1)
[2021-10-04 07:26] LABS: Anion Gap 13.7 mEq/L (5-15); Blood Urea Nitrogen 20 mg/dl (7-17); Calcium 8.6 mg/dl (8.4-10.2); Carbon Dioxide 24 mmol/L (22.0-30.0); Creatinine Clearance Estimated 47 mL/min (50-200); Estimated Glomerular Filt Rate 50 ml/min (>60); GFR (African American) 61 ML/MIN (>60); Glucose 204 mg/dl (74-100); MANUAL DIFFERENTIAL MANUAL DIFFERENTIAL (MANUAL DIFF)
--- NOTE | 2021-10-04 07:33 | HMH.PHAINT ---
MEDICATION RECONCILIATION COMPLETED ON PATIENT USING EXTERNAL FILL HISTORY FROM PHARMACY. -FRANNIE VIVEROS, HAND
[2021-10-04 07:51] LABS: Lymphocytes % 9 % (10-50); Monocytes % 3 % (2-9); Neutrophils % 88 % (42-76); Platelet Estimate Normal; RBC Morphology Normal; Total Cells Counted 100
--- NOTE | 2021-10-04 08:38 | CA_ITS ---
APPROVED REPORT EXAM: Comprehensive 2D, Doppler, and color-flow Echocardiogram [employer] Agent: Mitra Valentine RT(R) Ht: 5 ft 5 in Wt: 251lbs BSA: 2.18 BP: 193/78 mmHg Indications: SOB, COPD, Murmur, smoker, HTN, DM, VERA, obesity, hyperlipidemia, CAD, pneumonia. 2D Dimensions LVEF (Kirkland's) 64.30 % F: 54 - 74 LV Volume 101.50 mL F: 46 - 106 LV Volume Index 46.55 mL/m2 F: 29 - 61 LA Volume 46.90 mL LA Volume Index 21.51 mL/m2 (M/F) 16-34 M-Mode Dimensions RVDd 3.05 cm (0.9-2.6) LA Diam 5.23 cm (1.9-4.0) LVDd 5.51 cm (3.5-5.7) Ao Diam 3.01 cm (2.0-3.7) LVDs 4.57 cm (3.5-5.7) IVSd 0.98 cm (0.6-1.1) PWd 0.98 cm (0.6-1.1) EF (Teich) 35.20% FS 17.10% EDV (Teich) 148.00 mL TAPSE 2.14 (<1.7) ESV (Teich) 95.90 mL LV Diastology E Decel Time 183.00 (160-240 msec) E/A Ratio 0.7 MED E' 7.60 (< 7 cm/sec) E'/MED E' Ratio 13.91 (>14) LAT E' 6.40 (<10 cm/sec) E/LAT E' Ratio 16.52 (>14) Aortic Valve AI PHT 578.00 ms Mitral Valve MV E Max Henry. 106.00 (40-130 cm/s) MV A Velocity 149.00 (40-130 cm/s) E/A Ratio 0.71 MV Decel. Time 183.00 (160-240 ms) MV PHT 54.00 ms Tricuspid Valve TR P. Velocity 351.00 cm/s RAP Estimate 10.00 mmHg RVSP 59.20 mmHg Left Ventricle Left atrium is moderately enlarged, left ventricle is normal size, mild concentric left ventricular hypertrophy, estimated ejection fraction 55% with no regional wall motion abnormality, grade 1 diastolic dysfunction seen without tissue Doppler evidence of raise left atrial pressure. Right Ventricle Right atrium right ventricle mildly enlarged with normal contractility. Aortic Valve Aortic valve is minimally thickened and fibrosed, there is no aortic stenosis or aortic insufficiency. Mitral Valve Mitral valve grossly normal, there is mild mitral regurgitation. Tricuspid Valve Tricuspid grossly normal, there is mild tricuspid regurgitation, calculated right ventricular systolic pressure is 59 mmHg. Pulmonic Valve Pulmonic valve is poorly visualized. Great Vessels Aortic root is normal size. Inferior vena cava is normal size with normal inspiratory collapse. Pericardium No significant pericardial effusion noted. Conclusion 1. Moderately enlarged left atrium, normal left ventricular size, mild concentric left ventricular hypertrophy, estimated ejection fraction 55% with no regional wall motion abnormality, grade 1 diastolic dysfunction seen with tissue Doppler evidence of raise left atrial pressure. 2. Mildly enlarged right ventricle with normal contractility. 3. Mild mitral and tricuspid regurgitation, calculated right ventricular systolic pressure is 59 mmHg. 4. No significant pericardial effusion noted. 5. Inferior vena cava normal size with normal inspiratory collapse. Electronically signed by : Abhilash Choi MD 10/04/2021 17:04:29
--- NOTE | 2021-10-04 13:17 | HMH.HPDC ---
<Julia Rosario - Last Filed: 10/04/21 13:17> General - General Admission date:: 10/04/21 Discharge date: 10/04/21 *Admission Date: 10/03/21 *Chief complaint: shortness of breath *History of present illness: 61-year-old female with past medical history of hypertension, COPD, diabetes, CAD who is presenting to the ED with shortness of breath. Patient states that 2 days ago she had a sore throat with congestion. She was seen by her PCP earlier this morning, was Covid and influenza negative. She states that she had worsening shortness of breath over the afternoon which brought her to call EMS. She has not had any chest pain today or earlier this week. She has not had any recent fevers or chills, notes a mild worsening cough. No history of DVT or PE, no leg swelling. She admits to weight gain. No history of congestive heart failure, she is not taking Lasix. She denies any abdominal pain, chest pain. Patient does not wear oxygen at home. Differential diagnoses include COPD exacerbation, respiratory failure, pneumonia, asthma exacerbation, ACS, PE, pleural effusion. Given this work-up will include CBC, BNP, BMP, troponins, chest x-ray, EKG. Patient is mildly hypertensive, oxygen saturation 95% on room air. Physical exam with extensive wheezing, will give DuoNeb breathing treatment x2, albuterol x1 hour, 125 Solu-Medrol. Chest x-ray concerning for bibasilar pneumonia, pulmonary edema. Pneumonia severity score 113. BNP slightly elevated, initial troponin less than 0.01. EKG without evidence of ischemia. Patient remains mildly tachypneic, oxygen saturation 90 to 92% on room air. This was after patient received continuous albuterol breathing treatment x1 hour, DuoNeb's x2. Given this I would like to admit patient for pneumonia treatment with IV antibiotics and observation as I feel that she is high risk for bounce back or poor outcome going home. She is agreeable to this. I consulted the hospitalist team who admitted the patient. Placed order for a.m. labs, 2 g IV Rocephin, 100 mg oral doxycycline, regular diet. (above as per ER physician) [facility] History I have reviewed the patient's past medical history: Yes Medical History: Reports:: Asthma, Chronic Obstructive Pulmonary Disease (COPD), Diabetes Mellitus Type 2, Heart Murmur, Hyperlipidemia, Hypertension Denies:: Cancer, Diabetes Mellitus Type 1, Internal Pacemaker, MRSA, Seizures *Have you ever received a pneumonia vaccine?: Yes *Have you received a flu vaccine this season?: Yes Other Medical History: Reports: Arthritis, Hypothyroidism, Thyroid Disease Laterality Cases: Left: Total Knee Replacement, Bilateral: Carpal Tunnel Release Other Surgeries: Yes: Cholecystectomy, Tubal Ligation. No: Pacemaker Amputation: No Fractures: No - *Social History Last grade of school completed: 11th or 12th Smoking Status: Current every day smoker Tobacco Type: cigarettes # Packs/Day (cigarettes): 1 Alcohol Intake: never Substance Use Type: denies use *Occupational Status:: retired Housing: house Household Members: significant other *Travel in the last 8 weeks: None Family Hx:: Cancer, Diabetes, Hypertension, Thyroid Disorder Review of Systems - Constitutional Denies chills, Denies fever(s) - Eyes Denies blurry vision, Denies double vision - ENT Reports nasal congestion, Reports sore throat - *Cardiovascular Reports shortness of breath, Denies chest pain - *Respiratory Reports cough, Reports shortness of breath, Reports wheezing - *Gastrointestinal Denies abdominal pain, Denies loose stools, Denies nausea, Denies vomiting - *Genitourinary Denies difficulty urinating, Denies painful urination - *Musculoskeletal Denies joint pain - *Neurologic Reports weakness, Denies headache(s), Denies dizziness Exam Vital signs and Labs for Last 24 Hours: Temp Pulse Resp BP Pulse Ox 98.1 F 86 18 147/99 H 91 L 10/04/21 10:41 10/04/21 11:26 10/04/21 10:41 10/04/21 10:41
--- NOTE | 2021-10-04 14:13 | HMH.PHAINT ---
DISCHARGE MEDICATION COUNSELING PROVIDED, DISCUSSED HOW TO TAKE THE MEDROL DOSE PACK (WITH FOOD, CAN TAKE ALL TABS FOR THE DAY AT ONCE, TAKE EARLIER IN THE DAY IF YOU CAN). PATIENT ENDORSED NO QUESTIONS AT THIS TIME.
--- NOTE | 2021-10-07 15:07 | CARE MANAGER ---
Attempted to contact patient and left VM option. SAADIA Coyne
--- NOTE | 2021-10-07 16:56 | CARE MANAGER ---
Spoke with patient regarding discharge from the hospital, patient states that she is doing well, has her meds and a follow-up appointment. No further needs at this time.
--- NOTE | 2021-10-08 16:18 | CARE MANAGER ---
Unable to reach patient via phone to discuss post discharge status.
== END 2021-10-04 14:10 | disposition home or self-care (01) ==
LOC: ER 22:53 → 2ND 10-04 01:21
PROVIDERS: Admitting Provider Family Medicine; Emergency Provider Emergency Medicine; PCP Nurse Practitioner Family; Visit Provider Family Medicine
DX: J18.9 Pneumonia, unspecified organism (principal); J44.1 Chronic obstructive pulmonary disease with (acute) exacerbation; E11.9 Type 2 diabetes mellitus without complications; I25.10 Atherosclerotic heart disease of native coronary artery without angina pectoris; Z20.822 Contact with and (suspected) exposure to COVID-19; E03.9 Hypothyroidism, unspecified; Z79.84 Long term (current) use of oral hypoglycemic drugs; R06.02 Shortness of breath
CPT/HCPCS: G0378; 71045; 80048; 82803; 83880; 84484; 85007; 85025; 93005; 93306; 94640; 96365; 96375; 99285; C9803; J0696; U0003; U0005

== ENCOUNTER → 2021-10-14 14:14 | Outpatient (CLI) | payer MEDICARE, SELFPAY ==
--- NOTE | 2021-10-14 14:19 | XR_ITS ---
FINAL REPORT CLINICAL HISTORY: BRONCHOPNEUMONIA COMPARISON: October 03, 2021 FINDINGS: Two views of the chest were obtained. The heart size and pulmonary vascularity are within normal limits. The mediastinum is normal. There is mild bronchial wall thickening that may represent bronchitis. There is improved aeration of the lung bases. There is no pneumothorax. There is moderate degenerative change of the thoracic spine. IMPRESSION: Mild bronchial wall thickening may represent bronchitis. Reviewed, Interpreted and Dictated by Fredrick Fontenot III, MD Transcribed by Juan Jose Phillips Authenticated by Fredrick Fontenot III, MD on 10/14/2021 04:24:03 PM [facility]
== END ==
PROVIDERS: PCP Nurse Practitioner Family; Visit Provider Nurse Practitioner Family
DX: J18.0 Bronchopneumonia, unspecified organism (principal)
CPT/HCPCS: 71046

== ENCOUNTER → 2022-01-01 13:07 | Outpatient (CLI) | payer MEDICARE, MEDICAID, SELFPAY ==
--- NOTE | 2022-01-01 13:12 | MM_ITS ---
PROCEDURE INFORMATION: Exam: MG Bilateral Screening 3D Mammography Exam date and time: 01/01/2022 1:10 PM Age: 61 years old Clinical indication: Screening examination TECHNIQUE: Imaging protocol: Bilateral Screening tomosynthesis and 2D mammography including computer-aided detection (CAD) when performed. COMPARISON: 1. MG MM DIG SCREENING MAMM BI W/CAD 11/06/2020 10:56 AM 2. MG MM DIG SCREENING MAMM BI W/CAD 10/31/2019 9:01 AM 3. MG DXRT MM Dig mamm DX unilat RT CAD 10/01/2018 2:11 PM 4. MG DXRT MM Dig mamm DX unilat RT CAD 09/23/2018 1:21 PM FINDINGS: MAMMOGRAPHY: Breast composition: There are scattered areas of fibroglandular density. Mass: Stable benign-appearing subcentimeter nodules are present in the bilateral breasts. No new or morphologically suspicious nodule has developed to suggest malignancy. Architectural distortion: No new or suspicious architectural distortion. Calcifications: No new or suspicious calcifications are present Asymmetric density: No new or suspicious asymmetric density is present Skin thickening: None. Axillary adenopathy: None. IMPRESSION: No mammographic evidence of malignancy. Recommend annual screening mammography unless otherwise clinically indicated. ASSESSMENT: BI-RADS category 2: Benign
== END ==
PROVIDERS: PCP Nurse Practitioner Family; Visit Provider Nurse Practitioner Family
DX: Z12.31 Encounter for screening mammogram for malignant neoplasm of breast (principal)
CPT/HCPCS: 77063; 77067

== ENCOUNTER 2023-03-22 15:31 | Emergency (ER) | payer MEDICARE, MEDICAID, SELFPAY ==
[2023-03-22 15:45] VITALS: BP 134/64; PULSE 98; RESP 18; TEMP 36.9; O2SAT 97; BMI 39.9
--- NOTE | 2023-03-22 16:29 | EXP.UTC ---
Discharge Plan Disposition Patient Disposition: Home, Self-Care Condition: Good Prescriptions Prescriptions: No Action metformin 500 MG tablet 500 mg PO DAILY atorvastatin 40 MG tablet 40 mg PO HS levothyroxine 175 MCG tablet 175 mcg PO DAILY coenzyme Q10 30 MG capsule 30 mg PO DAILY loratadine 10 MG capsule 10 mg PO DAILY fluoxetine 40 MG capsule 40 mg PO DAILY lisinopril 40 MG tablet 40 mg PO DAILY [id number] 1 EACH blister with device 1 puff IH DAILY Patient Comments: INHALE 1 DOSE 1 TIME EACH DAY, AT THE SAME TIME EACH DAY. montelukast 10 mg tablet 10 mg PO DAILY Patient Comments: TAKE 1 TABLET 1 TIME EACH DAY IN THE EVENING FOR ALLERGIES albuterol sulfate 90 mcg/actuation HFA aerosol inhaler 1 puff INHALATION NEEDED PRN (Reason: wheezing ) Patient Comments: INHALE 1 OR 2 PUFFS EVERY 4 HOURS NEEDED Referrals Follow up/Referrals: Chio Hirsch [Primary Care Provider] - See instructions Activity Restrictions/Add. Instructions Additional Instructions/Restrictions: Follow up with PCP next week. Clinical Impressions Clinical Impression: Tricompartment osteoarthritis of right knee Instructions Patient Instructions: DI for Osteoarthritis, Certain Exercises May Help People with Knee Osteoarthritis, How To Perform RICE (Rest, Ice, Compress, Elevate) Discharge ED Provider: Noemi Shah [facility] General Stated complaint: AO 03/21@2000 injured R Knee Mode of Arrival: Ambulatory Source of Information: Patient Limitations: No Limitations Time Seen by Provider: 03/22/23 16:28 Description of Symptoms (Recalled from Triage Doc. by RN): Twisted right knee while sitting down. She leaned over while sitting down and he knee when the opposite way. Pain is from right hip down leg. HEENT Symptoms (Recalled from RN notes): No Resp Symptoms (Recalled from RN notes): No Skin Symptoms (Recalled from RN notes): No MS Symptoms (Recalled from RN notes): Yes Functional Status (Recalled from RN notes): n/a History of Present Illness Provider Complaint: Pt states that she twisted and started turn to the side and felt a pop in her knee. She relates that she has pain in her buttock that runs down her leg. She reports that she is unable to bend the knee and has a hard time standing. Related Data Home Medications Medication Instructions Recorded Confirmed atorvastatin 40 mg tablet 40 mg PO HS Cholesterol 03/21/18 03/22/23 levothyroxine 175 mcg tablet 175 mcg PO DAILY thyroid 03/21/18 03/22/23 metformin 500 mg tablet 500 mg PO DAILY Diabetes 10/05/20 03/22/23 coenzyme Q10 30 mg capsule 30 mg PO DAILY heart health 12/19/20 10/03/21 loratadine 10 mg capsule 10 mg PO DAILY Allergy symptoms 12/19/20 03/22/23 fluoxetine 40 mg capsule 40 mg PO DAILY MOOD 10/04/21 03/22/23 fluticasone fur. 100 mcg-umeclid 1 puff IH DAILY COPD 10/04/21 03/22/23 62.5 mcg-vilant 25 mcg inhalat.powder lisinopril 40 mg tablet 40 mg PO DAILY Hypertension 10/04/21 03/22/23 albuterol sulfate 90 mcg/actuation 1 puff inhalation NEEDED PRN 03/22/23 03/22/23 aerosol inhaler wheezing montelukast 10 mg tablet 10 mg PO DAILY allergies 03/22/23 03/22/23 Allergies Allergy/AdvReac Type Severity Reaction Status Date / Time Sulfa (Sulfonamide Allergy Severe HIVES/AIRWA Verified 03/22/23 16:11 Antibiotics) Y Worker's Comp Is this a Worker's Comp case?: No [facility] Disclaimer: The information contained in this section may have been updated after the patient was seen, as this information can be updated by other users. Social History Smoking Status: Current every day smoker tobacco type: cigarettes packs per day: 1 second hand exposure: No alcohol intake: never substance use type: denies use current occupational status: retired Travel in the last 8 weeks: None household members
--- NOTE | 2023-03-22 16:46 | XR_ITS ---
PROCEDURE INFORMATION: Exam: XR Right Knee Exam date and time: 03/22/2023 4:43 PM Age: 63 years old Clinical indication: Pain; Knee; Right; Additional info: Knee pain TECHNIQUE: Imaging protocol: Radiologic exam of the right knee. Views: 3 views. COMPARISON: CR FTR3 FOOT-RT-3 VIEWS 11/22/2016 7:36 PM FINDINGS: Bones/joints: Advanced degenerative changes medial knee compartment with diffuse joint space narrowing, subchondral sclerosis and mild marginal spurring. Mild marginal spurring along the lateral knee compartment and patellofemoral joint. No fracture, dislocation or gross malalignment. Moderate-sized joint effusion. Soft tissues: Unremarkable. IMPRESSION: Tricompartmental osteoarthritis most pronounced within the medial knee compartment with moderate size joint effusion.
[2023-03-22 18:02] VITALS: BP 134/64; PULSE 98; RESP 18; TEMP 36.9; O2SAT 97
== END 2023-03-22 18:02 | disposition home or self-care (01) ==
PROVIDERS: Emergency Provider Nurse Practitioner Family; PCP Nurse Practitioner Family
DX: M17.11 Unilateral primary osteoarthritis, right knee (principal); F17.210 Nicotine dependence, cigarettes, uncomplicated; X50.1XXA Overexertion from prolonged static or awkward postures, initial encounter
CPT/HCPCS: 73562; 99212; 99213; G0463

== ENCOUNTER 2023-07-08 14:59 | Outpatient (CLI) | payer MEDICARE, SELFPAY ==
--- NOTE | 2023-07-08 15:04 | CT_ITS ---
FINAL REPORT TECHNIQUE: Axial CT images of the chest were obtained without contrast. Low-dose protocol was utilized. This study was performed with techniques to keep radiation doses as low as reasonably achievable (ALARA). Individualized dose reduction techniques using automated exposure control or adjustment of mA and/or kV according to the patient's size were employed. CLINICAL HISTORY: H/O TOBACCO USE former smoker, quit 1 year ago. smoked 1ppd x 40 years COMPARISON: 05/14/2021 FINDINGS: CT CHEST WITHOUT, LOW DOSE SCREENING CT Di Vol: 2.90 mGy DLP: 98.99 mGy*cm There is no axillary, mediastinal, or hilar adenopathy. The heart size is normal. There are mild coronary artery calcifications. There is no pleural or pericardial effusion. There is mild emphysema and mild scarring. The lung windows show a stable 7 mm nodule in the right upper lobe on image 146 and a stable 10 mm pleural-based nodule in the left lower lobe seen on image 235. There are several calcified granulomas. Limited images of the upper abdomen demonstrate no acute findings. Postcholecystectomy. IMPRESSION: Stable nodules. LR Category 1: 12 month follow-up low-dose chest CT is recommended. Reviewed, Interpreted and Dictated by Fredrick Fontenot III, MD Transcribed by Marie Briceno Authenticated and . [facility]
--- NOTE | 2023-07-08 15:04 | MM_ITS ---
PROCEDURE INFORMATION: Exam: MG Bilateral Screening 3D Mammography Exam date and time: 07/08/2023 3:02 PM Age: 63 years old Clinical indication: Screening examination. Her mother had breast cancer. TECHNIQUE: Imaging protocol: Bilateral Screening tomosynthesis and 2D mammography including computer-aided detection (CAD) when performed. COMPARISON: 1. MG MM DIG SCREENING MAMM BI W/CAD 01/01/2022 1:10 PM 2. MG MM DIG SCREENING MAMM BI W/CAD 11/06/2020 10:56 AM 3. MG MM DIG SCREENING MAMM BI W/CAD 10/31/2019 9:01 AM 4. MG DXRT MM Dig mamm DX unilat RT CAD 10/01/2018 2:11 PM FINDINGS: MAMMOGRAPHY: Breast composition: There are scattered areas of fibroglandular density. Mass: No suspicious mass. Architectural distortion: None. Calcifications: No suspicious calcifications. Asymmetric density: None. Skin thickening: None. Axillary adenopathy: None. IMPRESSION: No mammographic evidence of malignancy. Annual screening is recommended unless otherwise clinically indicated. ASSESSMENT: BI-RADS Category 1: Negative
== END 2023-07-08 23:59 ==
LOC: RAD 15:00
PROVIDERS: PCP Nurse Practitioner Family; Visit Provider Nurse Practitioner Family
DX: Z12.31 Encounter for screening mammogram for malignant neoplasm of breast; Z87.891 Personal history of nicotine dependence; Z12.2 Encounter for screening for malignant neoplasm of respiratory organs
CPT/HCPCS: 71271; 77063; 77067

== ENCOUNTER 2025-05-04 09:27 | Outpatient (CLI) | payer MEDICARE, SELFPAY ==
--- NOTE | 2025-05-04 09:32 | MM_ITS ---
PROCEDURE INFORMATION: Exam: MG Bilateral Screening 3D Mammography Exam date and time: 05/04/2025 9:53 AM Age: 65 years old Clinical indication: Screening examination TECHNIQUE: Imaging protocol: Bilateral Screening tomosynthesis and 2D mammography including computer-aided detection (CAD) when performed. COMPARISON: 1. MG MM DIG SCREENING MAMM BI W/CAD 07/08/2023 3:02 PM 2. MG MM DIG SCREENING MAMM BI W/CAD 01/01/2022 1:10 PM FINDINGS: MAMMOGRAPHY: Breast composition: There are scattered areas of fibroglandular density. Mass: No suspicious masses. Architectural distortion: None. Calcifications: No suspicious calcifications. Asymmetric density: None. Skin thickening: None. Axillary adenopathy: None. IMPRESSION: No mammographic evidence of malignancy. Annual screening is recommended unless otherwise clinically indicated. ASSESSMENT: BI-RADS Category 1: Negative.
--- NOTE | 2025-05-04 09:32 | XR_ITS ---
FINAL REPORT TECHNIQUE: Bone densitometry calculations of the lumbar spine and left hip were obtained. CLINICAL HISTORY: SCREENING COMPARISON: None FINDINGS: Using L1-4, the bone mineral density of the spine is 1.135 g/cm2, corresponding to T-score of 0.8 and a Z score of 2.7. This is within the range of normal. Using the left hip, the bone mineral density of the femoral neck is 0.777 g/cm2, corresponding to a T-score of -0.6 and a Z-score of 1.0. This is within the range of normal. Using the right hip, the bone mineral density of the femoral neck is 0.706 g/cm?, corresponding to a T-score of -1.3 and a Z-score of 0.3. This is within the range of osteopenia. NOTE: T-score: Standard deviation compared with peak bone mass of young adult mean. *Following the recommendations of the International Society of Bone densitometry, classification of hip BMD is based on the lower of two T-scores; total hip or femoral neck. IMPRESSION: 1. Bone mineral density of the lumbar spine and left femoral neck within the range of normal. 2. Bone mineral density of the right femoral neck within the range of osteopenia. Reviewed, Interpreted and Dictated by Eve Sage MD Transcribed by Shikha Capps Authenticated and [facility]
--- NOTE | 2025-05-04 09:32 | CT_ITS ---
FINAL REPORT TECHNIQUE: Thin section axial images were obtained through the lungs using a low-dose technique per lung cancer screening protocol. Reconstruction images were obtained using the axial data. Exam was performed using dose reduction technique. CLINICAL HISTORY: SCREENING. FORMER SMOKER QUIT 4 YEARS AGO. SMOKED 1PPD FOR 30 YEARS. COPD. FATHER AND SISTER HX LUNG CANCER. COMPARISON: 07/08/2023 FINDINGS: CTDLvol: 2.90 DLP: 109.94 Former smoker 30 pack year history Lungs: There is a new nodular opacity in the subpleural left upper lobe measuring 25 mm on series 4, image 30 and 21 mm in craniocaudal dimension. There is a stable pleural-based left lower lobe nodule measuring 10 mm on series 4, image 60. A right upper lobe nodule measuring 6 mm on series 4, image 41 is also stable. Filling defects in the left mainstem bronchus are linear and likely secretions. Lymph nodes: No axillary lymphadenopathy. A new 23 mm left suprahilar lymph node is noted. No right hilar lymphadenopathy. Mediastinum: Heart size is normal. Pleura/pericardium: No pleural or pericardial effusion. Other: No acute abnormality in the upper abdomen. IMPRESSION: New 29 mm pleural-based left upper lobe nodular opacity with new left suprahilar lymphadenopathy. Lung RADS: 4X Recommendation: PET-CT Reviewed, Interpreted and Dictated by Eve Sage MD Transcribed by Marie Briceno Authenticated and . [facility]
--- OUTSIDE RECORDS SUMMARY | 2025-05-04 09:37 | XMS_ITS | Clinical Summary ---
Author Organization [facility] Address [address] [place] [address] Care Team Providers Care Estate Planning Paralegal Name Role Phone Chio Hirsch APRN Primary Care Provider [phone] Allergies Active Allergy Reactions Criticality Noted Date Comments Sulfa Antibiotics Anaphylaxis High 11/25/2017 Medications atorvastatin (LIPITOR) 40 MG tablet Take 40 mg by mouth Every Night. 8 Active FLUoxetine (PROzac) 40 MG capsule Take 40 mg by mouth Every Night. 8 Active lisinopril (PRINIVIL,ZESTR IL) 40 MG tablet Take 40 mg by mouth Every Night. 8 Active BREO ELLIPTA 100-25 MCG/INH aerosol powder Inhale 1 puff Daily. 8 Active levothyroxine (SYNTHROID, LEVOTHROID) 175 MCG tablet Take 175 mcg by mouth Daily. 2 8 Active metFORMIN ER (GLUCOPHAGE-XR) 500 MG 24 hr tablet Take 500 mg by mouth Every Night. 2 8 Active INCRUSE ELLIPTA 62.5 MCG/INH aerosol powder INHALE 1 DOSE ONCE A DAY 0 8 Active albuterol (PROVENTIL) (2.5 MG/3ML) 0.083% nebulizer solution Take 2.5 mg by nebulization Every 4 (Four) Hours As Needed for Wheezing. Active Coenzyme Q10 (CO Q-10) 200 MG capsule Take 1 capsule by mouth Every Night. Active aspirin 81 MG EC tablet Take 1 tablet by mouth Daily. Resume in 1 month 9 Active aspirin EC 325 MG EC tablet Take 1 tablet by mouth Daily. 30 tablet 9 Active Active Problems Problem Noted Date Diagnosed Date Leukocytosis, likely reactive 01/19/2019 Acute blood loss anemia, mild, asymptomatic 12/28 Acute postoperative pain 01/19/2019 Hyponatremia, mild 01/19/2019 Renal insufficiency, mild 01/19/2019 Status post total left knee replacement 01/19/20 19 HLD (hyperlipidemia) 01/18/2019 DM (diabetes mellitus) 01/18/2019 PHAN on CPAP 01/18/2019 Hypothyroid 01/18/2019 Tobacco use 01/18/2019 Primary osteoarthritis of left knee 11/12/2018 Family History Medical History Relation Name Comments Cancer Father Cancer Mother Hypertension Mother Relation Name Status Comments Father Mother Alive Social History Tobacco Use Types Packs/Day Years Used Date Smoking Tobacco: Every Day Cigarettes 0.5 36 Smokeless Tobacco: Never Comments:will quit for surge ry Alcohol Use Standard Drinks/Week Comments No 0 (1 standard drink = 0.6 oz pur e alcohol) Abuse Screen Answer Date Recorded Unsafe at Home or Work/School Not on file Feels Threatened by Someone? Not on file 05/2023 Does Anyone Keep You from Co ntacting Others or Doint Things Outside the Home? Not on file 04/09/2023 Physical Sign of Abuse Present Not on file 1 Housing Stability Answer Date Recorded Current Living Arrangements Not on file 03/29 Potentially Unsafe Housing Conditions Not on ricardo e 04/09/2023 Family and Community Support Answer Renato e Recorded Help with Day-to-Day Activities Not on file 04/09/2023 Lonely or Isolated Not on file 04/09/2023 Employment Answer Date Recorded Do you want help finding or keeping work or a matt b? Not on file 04/09/2023 Disabilities Answer Date Recorded Concentrating, Remembering, or Making Decisions Difficulty Not on file 04/09/2023 Doing Errands Independently Difficulty Not on fi le 04/09/2023 Education Answer Date Recorded Help with school or training? Not on file Preferred Language Not on file 04/09/2023 Comments No Sex and Gender Information Value Date Recorded Sex Assigned at Not on file Legal Sex Female 8:13 AM EDT Gender Identity Not on file Sexual Orientation Not on file Last Filed Vital Signs Vital Sign Reading Time Taken Comments Blood Pressure 138/67 01/19/2019 11:52 AM EDT Pulse 80 01/23/2020 10:13 AM EDT Temperature 36.7 C (98.1 F) 01/19/2019 11:52 AM EDT Respiratory Rate 18 01/19/2019 11:52 AM EDT Oxygen Saturation 97% 01/23/2020 10:13 AM EDT Inhaled Oxygen Concentration - - Weight 108 kg (239 lb) 01/23/2020 10:13 AM EDT Height 165.1 cm (5' 5 ) 01/23/2020 10:13 AM EDT Body Mass Index 39.77 01/23/2020 10:13 AM EDT Plan of Treatment Health Maintenance Due Date Last Done Comments DXA SCAN 1958 LIPID PANEL 1958 TDAP/TD VACCINES (1 - Tdap) 1977 MAMMOGRAM 1998 COLOGUARD 2003 COLON CANCER SCREENING 5 YEA R SIGMOIDOSCOPY 2003 COLONOSCOPY 2003 [address] CANCER SCREENING 2003 CT COLONOGRAPHY 2003 FECAL OCCULT BLOOD TEST 2003 FIT Testing (1 year) 2003 ZOSTER VACCINE (1 of 2) 02/03/2008 ANNUAL PHYSICAL 11/25/2017 HEPATITIS C SCREENING 11/25/2017 Pneumococcal Vaccine 50+ (2 of 2 - PCV20 or PCV21) 04/21/2019 04/21/2018, 07/02/2015 INFLUENZA VACCINE 01/27/2025 04/21/2017 COVID-19 Vaccine ( - season) 2025 HEMOGLOBIN A1C Discontinued 01/04/2019 Medical Devices Implanted Type Area Vp Corporate Development Device Identifier Shelf Expiration Date Model / Serial / Lot [facility] Bone Simplex/P Full Dose 10/Pk - [id number] Implanted:Qty : 1 on 01/18/2019 by Jeramy Benson MD at [facility] Implant Left: Knee LINDA DANGELO 02/26/2021 [id number] / / [id number] [facility] Bone Simplex/P Full Dose 10/Pk - [id number] Implanted:Qty : 1 on 01/18/2019 by Jeramy Benson MD at [facility] Implant Left: Knee LINDA DANGELO 02/26/2021 [id number] / / [id number] Base Tib/Kn Gen2 Nonpor Ti Sz3 Lt - [id number] Implanted:Qty : 1 on 01/18/2019 by Jeramy Benson MD at [facility] Implant Left: Knee PARIKH AND NEPHEW 09/21/2028 [id number] / / [id number] Comp Fem Legion Oxinium Ps Nrw Sz5n Lt - [id number] Implanted:Qty : 1 on 01/18/2019 by Jeramy Benson MD at [facility] Implant Left: Knee PARIKH AND NEPHEW 07/02/2028 [id number] / / [id number] Pat Gen2 Resrf 32mm - [id number] Implanted:Qty : 1 on 01/18/2019 by Jeramy Benson MD at [facility] Implant Left: Knee PARIKH AND NEPHEW 12/07/2028 [id number] / / [id number] Insrt Art Legion Ps Hf Xlpe Sz3to4 10mm - [id number] Implanted:Qty : 1 on 01/18/2019 by Jeramy Benson MD at [facility] Implant Left: Knee PARIKH AND NEPHEW 08/08/2028 [id number] / / [id number] Totl Kn Doug Parikh Nephew - [id number] Implanted:Qty : 1 on 01/18/2019 by Jeramy Benson MD at [facility] Implant Left: Knee PARIKH AND NEPHEW CAPKNEETOTAL SN2 / / Procedures Procedure Name Priority Date/Time Associated Diagnosis Comments HEMOGLOBIN A1C Routine 01/04/2019 12:29 PM EDT from Last 3 Months or Most Recently Relevant to Health Maintenance Results * (ABNORMAL) Hemoglobin A1c (01/04/2019 12:29 PM EDT) Hemoglobin A1C 6.30(H) 4.80 - 5.60 % 01/04/2019 1:07 PM EDT [facility] Blood Venipuncture / Unknown 01/04/2019 12:29 PM EDT 01/04/2019 12:41 PM EDT Narrative [facility] - 01/04/2019 1:07 PM EDT Hemoglobin A1C Ranges: Increased Risk for Diabetes 5.7% to 6.4% Diabetes >= 6.5% Diabetic Goal < 7.0% Santosh Dunham MD LAB BLOOD ORDERABLES Final Result [facility]
[address] [place] [address], from Last 3 Months or Most Recently Relevant to Health Maintenance Insurance EMPLOYEE [employer] [place] [id number] Advance Directives * CPR (Attempt to Resuscitate) (Latest Code Status on File) Date Activated Date Inactivated Comments 01/18/2019 12:03 PM 01/19/2019 3:10 PM Question Answer Comments Code Status (Patient has no pulse and is not breathing): CPR (Attempt to Resuscitate) Medical Interventions (Patie nt has pulse or is breathing): Full Level Of Support Discussed With: Patient Care Teams Estate Planning Paralegal Relationship Specialty Start Date End Date Chio Hirsch APRN PCP - General Nurse Practitioner 11/25/17
== END 2025-05-04 23:59 | disposition home or self-care (01) ==
LOC: RAD 09:28
PROVIDERS: PCP Nurse Practitioner Family; Visit Provider Nurse Practitioner Family
DX: Z12.31 Encounter for screening mammogram for malignant neoplasm of breast (principal); R92.323 Mammographic fibroglandular density, bilateral breasts; Z12.2 Encounter for screening for malignant neoplasm of respiratory organs; Z87.891 Personal history of nicotine dependence; J44.9 Chronic obstructive pulmonary disease, unspecified; R91.8 Other nonspecific abnormal finding of lung field; R59.0 Localized enlarged lymph nodes; Z80.1 Family history of malignant neoplasm of trachea, bronchus and lung; Z13.820 Encounter for screening for osteoporosis; M85.88 Other specified disorders of bone density and structure, other site; Z78.0 Asymptomatic menopausal state
CPT/HCPCS: 71271; 77063; 77067; 77080